=== PATIENT | male | born 1965 | race Caucasian/White ===

== ENCOUNTER 2016-05-03 22:22 | Inpatient (IN) | payer BC, OTHER ==
[~2016-05-03] VITALS: Ht 175.3 cm; Wt 95.0 kg
[2016-05-03] MEDS ORDERED: IBUP-1050 PO (23:12)
[2016-05-03] MEDS ORDERED: SODIUM CHLORIDE 0.9% 1000ML 1,000 ML IV STA (23:15)
[2016-05-03] MEDS ORDERED: SODIUM CHLORIDE 0.9% 500ML 500 ML IV STA (23:15)
--- NOTE | 2016-05-03 23:28 | EMERGENCY ROOM VISIT NOTE ---
History Report prepared by Singh: Daxa Bahena Under the Supervision of: Dr. Polly Bustillo M.D. First contact with patient: 23:08 Chief Complaint: ABDOMINAL PAIN Stated Complaint: STOMACH PAIN Nursing Triage Summary: Pt c/o RLQ pain since 1900. denies n/v/d. Tender to palpation. 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 The patient rates the current pain a an 8/10 in severity. The patient states that when the pain is very intense that it is a stabbing pain. The patient states that he has had some intermittent back pain associated with his symptoms. He denies any urinary symptoms or fevers. The patient states that he had stuffed cabbage for dinner 2 hours prior to his pain beginning. 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 A total of 10 systems reviewed and were otherwise negative. Past Medical & Surgical Medical Problems: (1) High cholesterol (2) Nephrolithiasis Family History Patient reports no known family medical history. Social History Smoking Status: Never Smoker Alcohol Use: occasionally Marital Status: Housing Status: lives with family Occupation Status: employed Current/Historical Medications Scheduled Tamsulosin HCl (Tamsulosin HCl), 0.4 MG PO HS Scheduled PRN Ondansetron Hcl (Zofran), 4 MG PO Q6H PRN for Nausea Oxycodone/Acetaminophen 5MG/325MG (Percocet 5MG/325MG), 1 TABLET PO Q6H PRN for Pain Allergies Coded Allergies: No Known Allergies (Unverified , 05/03/16) Physical Exam Vital Signs Date Time Temp Pulse Resp B/P Pulse Ox O2 Delivery O2 Flow Rate FiO2 05/04/16 01:52 93 18 138/76 94 Room Air 05/03/16 23:39 81 18 185/116 95 Room Air 05/03/16 22:33 37.0 88 18 197/114 94 Room Air Physical Exam Vital signs reviewed. General: Well-appearing male, in no significant distress. HEENT: No scleral icterus, PERRLA, neck supple. Atraumatic. Cardiovascular: Regular rate and rhythm, no extra sounds. Pulmonary: Clear to auscultation bilaterally, normal work of breathing. Abdomen: Mild right lower quadrant abdominal tenderness, no rebound, no guarding , positive bowel sounds. Mildly obese. Back: No CVA tenderness. Musculoskeletal: Atraumatic, no peripheral edema. Neurologic: Patient awake alert and oriented x 3 Skin: Warm, dry, no rash Medical Decision & Procedures ER Provider Diagnostic Interpretation: CT results as stated below per my review and radiologist interpretation: Preliminary Findings Only--See Final Report For Complete Findings;\\ CT ABDOMEN & PELVIS: Nephrolithiasis with 2 adjacent obstructing stones in the proximal right ureter measuring approximately 13 mm in length. There is mild right hydronephrosis and perinephric stranding. Minimally thickened wall. Underdistended bladder. Scattered colonic diverticula. Small fat-containing left inguinal hernia Fatty liver. Small nonspecific mesenteric and retroperitoneal lymph nodes. Normal appendix Radiologist: Eleanor Solorzano M.D Study ready at 1452 and initial results transmitted at 0012 Laboratory Results Test 05/03/16 22:47 05/03/16 23:15 Total Bilirubin 0.5 mg/dl (0.2-1) Aspartate Amino Transf (AST/SGOT) 22 U/L (15-37) Alanine Aminotransferase (ALT/SGPT) 36 U/L (12-78) Alkaline Phosphatase 80 U/L (45-117) Total Protein 8.3 gm/dl (6.4-8.2) Albumin 4.4 gm/dl (3.4-5.0) Globulin 3.9 gm/dl (2.5-4.0) Albumin/Globulin Ratio 1.1 (0.9-2) Lipase 172 U/L (73-393) Urine Color YELLOW Urine Appearance CLEAR (CLEAR) Urine pH 6.0 (4.5-7.5) Urine Specific [place] 1.015 (1.000-1.030) Urine Protein TRACE (NEG) Urine Glucose (UA) NEG (NEG) Urine Ketones NEG (NEG) Urine Occult Blood 3+ (NEG) Urine Nitrite NEG (NEG) Urine Bilirubin NEG (NEG) Urine Urobilinogen NEG (NEG) Urine Leukocyte Esterase NEG (NEG) Urine RBC >30 /hpf (0-4) Urine WBC 1-5 /hpf (0-5) Urine Epithelial Cells 0-5 /lpf (0-5) Urine Bacteria NEG (NEG) Laboratory results per my review. Medications Administered Medications (Trade) Dose Ordered Sig/Lauren Route Start Time Stop Time Status Last Admin Dose Admin Sodium Chloride 1,000 ml @ 125 mls/hr Q8H STAT IV 05/03/16 23:15 05/04/16 04:16 DC 05/03/16 23:40 125 MLS/HR Sodium Chloride (Nss 500ml) 500 ml @ 999 mls/hr Q31M STAT IV 05/03/16 23:15 05/03/16 23:45 DC 05/03/16 23:15 999 MLS/HR Hydralazine HCl (HydrALAZINE INJ) 10 mg NOW STAT IV. 05/03/16 23:44 05/03/16 23:46 DC 05/03/16 23:59 10 MG Hydromorphone HCl (Dilaudid Inj) 1 mg NOW STAT IV 05/04/16 00:38 05/04/16 00:39 DC 05/04/16 00:43 1 MG Ondansetron HCl 4 mg 4 mg NOW STAT IV 05/04/16 00:38 05/04/16 00:39 DC 05/04/16 00:43 4 MG Sodium Chloride (Nss 1000ml) 1,000 ml @ 100 mls/hr Q10H IV 05/04/16 02:00 05/05/16 12:36 DC 05/05/16 08:28 100 MLS/HR ED Course 2308: Past medical records reviewed. The patient was evaluated in room B2. A complete history and physical examination was performed. 2315: Ordered Sodium Chloride 500 ml @ 999 mls/hr IV, Sodium Chloride 1,000 ml @ 125 mls/hr IV. 2344: Ordered Hydralazine HCl 10 mg IV. 0037: I reevaluated the patient and updated him on his CT scan results. We discussed the patient being admitted for pain management . 0038: Ordered Dilaudid Inj 1 mg IV. 0100: I discussed the case with Dr. Gracia BAILEY Hospitalist. He agreed to evaluate the patent for further management and care. Medical Decision The patient is a 51 year old male who presents to the ED with complaints of RLQ abdominal pain. Differentials include but are not limited to appendicitis, diverticulitis, PUD, biliary pathology, UTI, pancreatitis, obstruction, mesenteric ischemia, aortic pathology, infections, inflammatory bowel disease, renal colic, as well as others were entertained. This pt was evaluated and appeared to be in no distress. IV access was obtained and lab work was drawn. 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 Pt was hydrated with NSS. He initially denied the need for pain medications. CT was performed on abd/pelvis and is significant for obstructing ureteral stone. UA is significant for blood. Pt was reevaluated and stated pain had worsened. He was given IV dilaudid and zofran with some relief. He did not feel he could go home. Pt was d/w the hospitalist service for further management. Consults Time Called: 004 Consulting Physician: [facility] Returned Call: 0100 I discussed the case with Dr[facility]. He agreed to evaluate the patent for further management and care. Impression Primary Impression: Right ureteral calculus Additional Impression: Obstructing kidney stones Scribe Attestation The scribe's documentation has been prepared under my direction and personally reviewed by me in its entirety. I confirm that the note above accurately reflects all work, treatment, procedures, and medical decision making performed by me. Departure Information Dispostion Being Evaluated By Hospitalist Prescriptions Ondansetron Hcl (ZOFRAN) 4 Mg Tab 4 MG PO Q6H Y for Nausea for 15 Days, #60 TAB Prov: Doris Clark PA-C 05/05/16 Tamsulosin HCl (Tamsulosin HCl) 0.4 Mg Cap 0.4 MG PO HS for 15 Days, #15 CAP Prov: Doris Clark PA-C 05/05/16 Oxycodone/Acetaminophen 5MG/325MG (PERCOCET 5MG/325MG) Tab 1 TABLET PO Q6H Y for Pain for 3 Days, #12 TAB Prov: Doris Clark PA-C 05/05/16 Patient Instructions [facility] Problem Qualifiers
[2016-05-03 23:30] LABS: MANUAL MICROSCOPIC REQUIRED? YES; URINE APPEARANCE CLEAR (CLEAR); URINE BILIRUBIN NEG (NEG); URINE COLOR YELLOW; URINE NITRITE NEG (NEG); URINE SPECIFIC GRAVITY 1.015 (1.000-1.030); UROBILINOGEN NEG (NEG)
[2016-05-03 23:36] LABS: REVIEW REQ? NO
[2016-05-03 23:38] LABS: URINE BACTERIA NEG (NEG); URINE RBC >30 /hpf (0-4); ZZUR CULT IF INDIC CLEAN CATCH NO
[2016-05-03 23:38] LABS: BASO % 0.3 %; BASO ABS # 0.04 K/uL (0-0.2); COMPLETE YES; EOS % 0.9 %; HEMATOCRIT 45.4 % (42-52); IG% 0.2 %; LYMPH % 17.3 %; LYMPH ABS # 2.02 K/uL (1.2-3.4); MEAN CELL VOLUME 84.9 fL (80-100); MEAN CORPUSCULAR HEMOGLOBIN 29.9 pg (25-34); MEAN CORPUSCULAR HGB CONC 35.2 g/dl (32-36); MEAN PLATELET VOLUME 11.4 fL (7.4-10.4); NEUT % 76.3 %; PLATELET COUNT 218 K/uL (130-400); RED BLOOD COUNT 5.35 M/uL (4.7-6.1); WHITE BLOOD COUNT 11.69 K/uL (4.8-10.8)
[2016-05-03] MEDS ORDERED: HydrALAZINE HCL 20 MG/ML VIAL IV. STA (23:44)
[2016-05-03 23:59] LABS: BUN/CREATININE RATIO 17.7 (10-20); CALCIUM 9.1 mg/dl (8.5-10.1); CREATININE 1.1 mg/dl (0.60-1.40); POTASSIUM 3.7 mmol/L (3.5-5.1)
[2016-05-04] VITALS (7 sets, daily range): BP systolic 120–170; BP diastolic 68–95; PULSE 75–91; TEMP 36.5–37.4; O2SAT 93–98; Ht 175.3 cm; Wt 95.0 kg
[2016-05-04 00:01] LABS: ALB/GLOB RATIO 1.1 (0.9-2)
[2016-05-04] MEDS ORDERED: HYDROmorphone INJ 1 MG/ML SYR IV STA (00:38)
[2016-05-04] MEDS ORDERED: ONDANSETRON INJ 2 MG/ML 2 ML VIAL IV STA (00:38)
[2016-05-04] MEDS ORDERED: ACETAMINOPHEN 325 MG TAB PO PRN (02:00)
[2016-05-04] MEDS ORDERED: POLYETHYLENE (MIRALAX) 17 GM PACK PO PRN (02:00)
[2016-05-04] MEDS ORDERED: ALUMINUM/MAGNESIUM/SIMETH (MAALOX MAX) 30 ML UDC PO PRN (02:00)
[2016-05-04] MEDS ORDERED: MAGNESIUM HYDROXIDE SUSP 30 ML UDC PO PRN (02:00)
[2016-05-04] MEDS ORDERED: ONDANSETRON INJ 2 MG/ML 2 ML VIAL IV PRN (02:00)
[2016-05-04] MEDS ORDERED: HydrALAZINE HCL 20 MG/ML VIAL IV. PRN (04:30)
--- NOTE | 2016-05-04 04:32 | History and Physical ---
History & Physical Date & Time of Service: May 04, 2016 at 04:30 Chief Complaint: Nephrolithiasis Primary Care Physician: No Doctor, Assigned History of Present Illness This is a 51 y/o M with a pmh of HTN and Dyslipidemia who presents with sudden onset 8/10 RLQ pain radiating to his groin and right back. This started around 7 pm today. He said he had pigs in a blanket for dinner after which the pain started and he thought it was just gas. But the pain persisted. It is a sharp stabbing pain that is intermittent. He has never experienced this before. Denies any urinary symptoms. Denies history of kidney stones. Denies gross hematuria Has his appendix. Has had some nausea, vomiting, fevers and chills. Past Medical/Surgical History Medical Problems: (1) High cholesterol Status: Chronic Family History Patient reports no known family medical history. Social History Smoking Status: Never Smoker Alcohol Use: socially Marital Status: Housing status: lives with family Occupational Status: employed Multi-Drug Resistant Organisms History of MDRO: No Allergies Coded Allergies: No Known Allergies (Unverified , 05/03/16) Home Medications Scheduled Tamsulosin HCl (Tamsulosin HCl), 0.4 MG PO HS Scheduled PRN Ondansetron Hcl (Zofran), 4 MG PO Q6H PRN for Nausea Oxycodone/Acetaminophen 5MG/325MG (Percocet 5MG/325MG), 1 TABLET PO Q6H PRN for Pain Review of Systems Constitutional: + chills, + fever, No fatigue, No weakness Respiratory: No cough, No dyspnea at rest, No dyspnea on exertion, No shortness of breath, No sputum, No wheezing Cardiovascular: No chest pain Abdomen: + nausea, + pain, + vomiting, No constipation, No diarrhea Genitourinary - Male: No dysuria, No hematuria, No urinary frequency, No urinary urgency Physical Exam Vital Signs Date Time Temp Pulse Resp B/P Pulse Ox O2 Delivery O2 Flow Rate FiO2 05/04/16 03:55 79 155/77 05/04/16 03:16 37.4 91 20 170/95 98 Room Air 05/04/16 01:52 93 18 138/76 94 Room Air 05/03/16 23:39 81 18 185/116 95 Room Air 05/03/16 22:33 37.0 88 18 197/114 94 Room Air General Appearance: no apparent distress Eyes: PERRL, EOMI ENT: hearing grossly normal Neck: supple, no adenopathy Respiratory/Chest: lungs clear, normal breath sounds, no respiratory distress, no accessory muscle use Cardiovascular: regular rate, rhythm, no edema, no murmur Abdomen/GI: normal bowel sounds, non tender, soft Back: no CVA tenderness Extremities/Musculoskelatal: no calf tenderness Neurologic/Psych: no motor/sensory deficits, alert, normal mood/affect, oriented x 3 Diagnostics Laboratory Results Results Past 24 Hours Test 05/03/16 22:47 05/03/16 23:15 Range/Units White Blood Count 11.69 4.8-10.8 K/uL Red Blood Count 5.35 4.7-6.1 M/uL Hemoglobin 16.0 14.0-18.0 g/dL Hematocrit 45.4 42-52 % Mean Corpuscular Volume 84.9 80-100 fL Mean Corpuscular Hemoglobin 29.9 25-34 pg Mean Corpuscular Hemoglobin Concent 35.2 32-36 g/dl Platelet Count 218 130-400 K/uL Mean Platelet Volume 11.4 7.4-10.4 fL Neutrophils (%) (Auto) 76.3 % Lymphocytes (%) (Auto) 17.3 % Monocytes (%) (Auto) 5.0 % Eosinophils (%) (Auto) 0.9 % Basophils (%) (Auto) 0.3 % Neutrophils # (Auto) 8.92 1.4-6.5 K/uL Lymphocytes # (Auto) 2.02 1.2-3.4 K/uL Monocytes # (Auto) 0.59 0.11-0.59 K/uL Eosinophils # (Auto) 0.10 0-0.5 K/uL Basophils # (Auto) 0.04 0-0.2 K/uL RDW Standard Deviation 40.4 36.4-46.3 fL RDW Coefficient of Variation 13.2 11.5-14.5 % Immature Granulocyte % (Auto) 0.2 % Immature Granulocyte # (Auto) 0.02 0.00-0.02 K/uL Sodium Level 141 136-145 mmol/L Potassium Level 3.7 3.5-5.1 mmol/L Chloride Level 104 98-107 mmol/L Carbon Dioxide Level 30 21-32 mmol/L Anion Gap 7.0 3-11 mmol/L Blood Urea Nitrogen 19 7-18 mg/dl Creatinine 1.10 0.60-1.40 mg/dl Est Creatinine Clear Calc Drug Dose 91.8 ml/min Estimated GFR () 90.2 Estimated GFR (Non- 77.9 BUN/Creatinine Ratio 17.7 10-20 Random Glucose 130 70-99 mg/dl Calcium Level 9.1 8.5-10.1 mg/dl Total Bilirubin 0.5 0.2-1 mg/dl Aspartate Amino Transf (AST/SGOT) 22 15-37 U/L Alanine Aminotransferase (ALT/SGPT) 36 12-78 U/L Alkaline Phosphatase 80 45-117 U/L Total Protein 8.3 6.4-8.2 gm/dl Albumin 4.4 3.4-5.0 gm/dl Globulin 3.9 2.5-4.0 gm/dl Albumin/Globulin Ratio 1.1 0.9-2 Lipase 172 73-393 U/L Urine Color YELLOW Urine Appearance CLEAR CLEAR Urine pH 6.0 4.5-7.5 Urine Specific [place] 1.015 1.000-1.030 Urine Protein TRACE NEG Urine Glucose (UA) NEG NEG Urine Ketones NEG NEG Urine Occult Blood 3+ NEG Urine Nitrite NEG NEG Urine Bilirubin NEG NEG Urine Urobilinogen NEG NEG Urine Leukocyte Esterase NEG NEG Urine RBC >30 0-4 /hpf Urine WBC 1-5 0-5 /hpf Urine Epithelial Cells 0-5 0-5 /lpf Urine Bacteria NEG NEG Impression Assessment and Plan Obstructing nephrolithiasis with mild hydro NPO NSS Pain control Urology consult Zofran Strain urine HTN, untreated Will need to be started on an agent either prior to discharge or f/u with PCP Hydralazine prn while here DVT proph Heparin, but held for probable procedure tomrrow. Advanced Directives Existing Living Will: No Existing Power of Boat Hop: No VTE Prophylaxis VTE Risk Assessment Done? Y/N: Yes Risk Level: Moderate Assessment and Plan Attending Addendum: I have physically seen and examined this patient, have directed their medical care, have supervised the medical residents activities, and agree with the H&P as noted above, with the following changes: The patient is awake, well-developed and adequately nourished, alert and oriented 3, normocephalic and atraumatic, lying in bed and in no acute distress. HEENT--PERRL, EOMI, mucous membranes and oropharynx normal. Neck--supple, no JVD or bruits, thyroid normal, trachea midline, no adenopathy. Heart--normal S1 and S2, no extra beats, no murmurs, rubs or gallops. Lungs--clear bilaterally with good air movement, no respiratory distress, no accessory muscle use. Abdomen--normal bowel sounds and soft, nontender and nondistended, no hernias or masses, no organomegaly. Extremities--no cyanosis, clubbing or edema. There are good distal pulses b/l. Dermatologic--normal skin turgor, normal color, warm and dry, no abnormal lymph nodes, no rash. Neurologic--cranial nerves II through XII grossly intact, motor and sensory examination normal. Rheumatologic--normal range of motion, nontender, muscles and joints. Psychiatric--normal affect. Assessment and Plan: Obstructing kidney stone with hydronephrosis--patient will be admitted to medical floor. She'll be kept nothing by mouth for possible procedure in the a.m. We'll consult urology. Start Zosyn 3.375mg IV every 6 hours, Zofran 4 mg IV every 6 hours when necessary nausea, Protonix 40 mg IV daily and morphine or Dilaudid IV as needed for pain. Follow serial CBC with differential, BMP and magnesium levels. Hypertension--hydralazine 10 mg IV every 4 hours when necessary.
[2016-05-04] MEDS ORDERED: HYDROmorphone INJ 1 MG/ML SYR IV PRN (04:45)
[2016-05-04] MEDS: SODIUM CHLORIDE 0.9% 1000ML 1,000 ML IV SCH ×3 (04:55→21:52)
[2016-05-04] MEDS ORDERED: HYDROmorphone INJ 2 MG/ML SYR/VIAL ONE (04:58)
[2016-05-04] MEDS ORDERED: HEPARIN SOD 5000 UNIT/0.5 ML CARP SQ SCH (06:00)
[2016-05-04 06:24] LABS: INR 0.9 (0.9-1.1)
--- NOTE | 2016-05-04 07:08 | DIAGNOSTIC IMAGING REPORT ---
CT SCAN OF THE ABDOMEN AND PELVIS WITHOUT CONTRAST CLINICAL HISTORY: Right flank pain COMPARISON STUDY: No previous studies for comparison. TECHNIQUE: CT scan of the abdomen and pelvis was performed from the lung bases to the proximal femurs. Images are reviewed in the axial, sagittal, and coronal planes. IV contrast was not administered for this examination. CT DOSE: 1596.64 mGy.cm FINDINGS: Lower chest: There are minimal dependent atelectatic changes. Liver: There is mild hepatic steatosis. No focal masses are visualized. Gallbladder: Unremarkable. Spleen: Normal in size and attenuation. Pancreas: Unremarkable. Adrenal glands: Unremarkable. Kidneys: There are clustered lower pole left renal calculi measuring 6 mm in aggregate. There is a 5 mm upper pole right renal cyst. There is a 2 mm lower pole right renal calculus. There is right-sided hydronephrosis. There are 2 tangential obstructing proximal right ureteral calculi measuring 5 mm and 3 mm respectively. No bladder calculi are visualized. Bowel: There are no transition zones indicate bowel obstruction. There is colonic diverticulosis. There are no acute peridiverticular inflammatory changes. The appendix appears normal. Peritoneum: There is no intraperitoneal free air or abdominal ascites. There is small fat-containing left inguinal hernia. Vasculature: The abdominal aorta is normal in course and caliber. Adenopathy: None. Pelvic viscera: The bladder, and pelvic viscera are unremarkable. Skeletal structures: No destructive osseous lesions are seen. IMPRESSION: 1. Bilateral nephrolithiasis 2. Obstructing tangential proximal right ureteral calculi measuring 5 mm and 3 mm respectively. These are located at the L3-4 level. Electronically signed by: Titus Stark M.D. 05/04/2016 7:07 AM Dictated Date/Time: 05/04/2016 7:02 AM
--- NOTE | 2016-05-04 09:19 | DIAGNOSTIC IMAGING REPORT ---
TWO VIEW CHEST CLINICAL HISTORY: Preoperative examination. FINDINGS: PA and lateral chest radiographs are compared to study dated 07/03/2009. The cardiomediastinal silhouette is unremarkable. The lungs and pleural spaces are clear. There is no pneumothorax. The bony thorax appears intact. IMPRESSION: No active disease in the chest. Electronically signed by: Ran Story M.D. 05/04/2016 9:17 AM Dictated Date/Time: 05/04/2016 9:17 AM
--- NOTE | 2016-05-04 09:24 | DIAGNOSTIC IMAGING REPORT ---
KUB CLINICAL HISTORY: Right ureteral calculus COMPARISON STUDY: CT scan dated 05/03/2016 FINDINGS: There is no pathologic bowel dilatation. There are 2 calcifications at the L3-4 level, consistent with proximal right ureteral calculi. These measure 5 mm and 4 mm respectively. There are clustered calcifications project over the lower pole the left kidney consistent with calculi. These measure 8 mm in aggregate. IMPRESSION: 1. Left-sided nephrolithiasis 2. Two proximal right ureteral calculi measuring 5 mm and 4 mm respectively. Electronically signed by: Titus Stark M.D. 05/04/2016 9:23 AM Dictated Date/Time: 05/04/2016 9:19 AM
[2016-05-04] MEDS ORDERED: TAMSULOSIN HCL 0.4 MG CAP PO ONE (12:00)
--- NOTE | 2016-05-04 12:02 | Urology Consultation ---
History General Date of Service: May 04, 2016. Chief Complaint: right ureteral stone Primary Care Physician: No Doctor, Assigned Pt seen a urologist before?: No History of Present Illness 51 yo male admitted with right flank pain that started last evening. The pain was accompanied by some nausea. Denies f/c, n/v, dysuria, or hematuria. Pain has improved since admission. CT scan showing 2 right ureteral stones measuring 5mm and 4mm. The stones are visible on KUB as well. He has no previous hx of stones. White count noted to be 11.69. Cr is 1.1. UC&S is pending. Currently afebrile. Imaging Imaging: CT, KUB Laboratory Last 24 Hours Test 05/03/16 22:47 05/03/16 23:15 05/04/16 05:50 White Blood Count 11.69 K/uL Red Blood Count 5.35 M/uL Hemoglobin 16.0 g/dL Hematocrit 45.4 % Mean Corpuscular Volume 84.9 fL Mean Corpuscular Hemoglobin 29.9 pg Mean Corpuscular Hemoglobin Concent 35.2 g/dl Platelet Count 218 K/uL Mean Platelet Volume 11.4 fL Neutrophils (%) (Auto) 76.3 % Lymphocytes (%) (Auto) 17.3 % Monocytes (%) (Auto) 5.0 % Eosinophils (%) (Auto) 0.9 % Basophils (%) (Auto) 0.3 % Neutrophils # (Auto) 8.92 K/uL Lymphocytes # (Auto) 2.02 K/uL Monocytes # (Auto) 0.59 K/uL Eosinophils # (Auto) 0.10 K/uL Basophils # (Auto) 0.04 K/uL RDW Standard Deviation 40.4 fL RDW Coefficient of Variation 13.2 % Immature Granulocyte % (Auto) 0.2 % Immature Granulocyte # (Auto) 0.02 K/uL Sodium Level 141 mmol/L Potassium Level 3.7 mmol/L Chloride Level 104 mmol/L Carbon Dioxide Level 30 mmol/L Anion Gap 7.0 mmol/L Blood Urea Nitrogen 19 mg/dl Creatinine 1.10 mg/dl Est Creatinine Clear Calc Drug Dose 91.8 ml/min Estimated GFR () 90.2 Estimated GFR (Non- 77.9 BUN/Creatinine Ratio 17.7 Random Glucose 130 mg/dl Calcium Level 9.1 mg/dl Total Bilirubin 0.5 mg/dl Aspartate Amino Transf (AST/SGOT) 22 U/L Alanine Aminotransferase (ALT/SGPT) 36 U/L Alkaline Phosphatase 80 U/L Total Protein 8.3 gm/dl Albumin 4.4 gm/dl Globulin 3.9 gm/dl Albumin/Globulin Ratio 1.1 Lipase 172 U/L Urine Color YELLOW Urine Appearance CLEAR Urine pH 6.0 Urine Specific [place] 1.015 Urine Protein TRACE Urine Glucose (UA) NEG Urine Ketones NEG Urine Occult Blood 3+ Urine Nitrite NEG Urine Bilirubin NEG Urine Urobilinogen NEG Urine Leukocyte Esterase NEG Urine RBC >30 /hpf Urine WBC 1-5 /hpf Urine Epithelial Cells 0-5 /lpf Urine Bacteria NEG Prothrombin Time 10.0 SECONDS Prothromb Time International Ratio 0.9 Problem List Medical Problems: (1) Right ureteral calculus Status: Acute Past History high cholesterol Past Surgical History: no surgical history Family History hyperlipidemia Social History Hx Tobacco Use In Past Year?: Yes Smoking: non-smoker Alcohol: socially Marital status: Housing status: lives with family Occupation status: employed History of MDRO No Allergies Coded Allergies: No Known Allergies (Unverified , 05/03/16) Medications Home Medications: Home Meds and Scripts Medications Dose Route/Sig Max Daily Dose Days Date Category Advil (Ibuprofen) 200 Mg Tab 400 Mg PO Q4 PRN 05/03/16 Reported Inpatient Medications: Current Inpatient Medications Medications (Trade) Dose Ordered Sig/Lauren Route Start Time Stop Time Status Last Admin Dose Admin Acetaminophen (Tylenol Tab) 650 mg Q4H PRN PO 05/04/16 02:00 06/03/16 01:59 Al Hydrox/Mg Hydrox/Simethicone (Maalox Max Susp) 15 ml Q4H PRN PO 05/04/16 02:00 06/03/16 01:59 Magnesium Hydroxide (Milk Of Magnesia Susp) 30 ml Q6H PRN PO 05/04/16 02:00 06/03/16 01:59 Polyethylene (Miralax Powder Packet) 17 gm DAILY PRN PO 05/04/16 02:00 06/03/16 01:59 Ondansetron HCl (Zofran Inj) 4 mg Q6H PRN IV 05/04/16 02:00 06/03/16 01:59 Heparin Sodium (Porcine) 5000 unit 5,000 unit Q12H SQ 05/04/16 06:00 06/03/16 05:59 Future Hold Sodium Chloride (Nss 1000ml) 1,000 ml @ 100 mls/hr Q10H IV 05/04/16 02:00 06/03/16 01:59 05/04/16 11:34 100 MLS/HR Hydralazine HCl (HydrALAZINE INJ) 10 mg Q4H PRN IV. 05/04/16 04:30 06/03/16 04:29 Hydromorphone HCl (Dilaudid Inj) 1 mg Q6H PRN IV 05/04/16 04:45 05/18/16 04:44 Review of Systems Review of Systems Constitutional: No chills, No fever Eyes: No double vision Neurological: No dizzy Endocrine: No excessive thirst Gastrointestinal: No abdominal pain, No nausea, No vomiting Cardiovascular: No chest pain Respiratory: No shortness of breath Skin: No rash Musculoskeletal: No back pain Male : + kidney stones, No blood in urine, No painful urination Physical Exam Vital Signs: Vital Signs Past 12 Hours Date Time Temp Pulse Resp B/P Pulse Ox O2 Delivery O2 Flow Rate FiO2 05/04/16 10:20 88 161/85 05/04/16 07:43 36.9 75 18 131/68 93 Room Air 05/04/16 07:20 Room Air 05/04/16 06:11 93 Room Air 05/04/16 03:55 79 155/77 05/04/16 03:30 Room Air 05/04/16 03:16 37.4 91 20 170/95 98 Room Air 05/04/16 01:52 93 18 138/76 94 Room Air Physical Exam: General Appearance: no apparent distress Eyes: bilateral eyes normal inspection ENT: hearing grossly normal Neck: no JVD Respiratory/Chest: no respiratory distress, no accessory muscle use Cardiovascular: no JVD Extremities: normal inspection Neurologic/Psychiatric: alert, normal mood/affect, oriented x 3 Skin: normal color Assessment & Plan Assessment & Plan A/P: 5mm and 4mm right ureteral stones Tx options discussed with the pt today have included a trial of passage with MET , cysto stent placement, and ESWL. Unfortunately he is not a candidate for ESWL tomorrow as he reports taking 800mg of ibuprofen daily; last dose yesterday morning. He would need to stop taking this medication for 1 week prior to ESWL. He defers stent placement at this time as his pain if is currently controlled, and wishes to attempt a trial of passage with MET at this time. Recommend supportive management with IVF and pain control. Will start Flomax as well. Strain all urine. Will provide a diet today. The pt may possibly be discharged home today from a perspective if pain remains controlled. Recommend d/c home on oral pain medication, Zofran, and Colace. If he remains overnight, will make him NPO after midnight and obtain a KUB and labs in the AM. Will also tentatively schedule him for ESWL next Sunday, May 12. Thanks for the consult. Will continue to follow along with primary service at this time. The pt was seen by myself and Dr. Alejo this afternoon.
--- NOTE | 2016-05-04 13:06 | Hospitalist Progress Note ---
Hospitalist Progress Note Date of Service May 04, 2016. Subjective Pt evaluation today including: conversation w/ patient, physical exam, chart review, lab review, review of studies, review of inpatient medication list Voiding: no voiding problems, no incontinence Patient states he is feeling well. 0/10 harkins. NPO pending urology consult- no intervention at this time, advance diet. Urination w/out any complaints. Patient denies any fever, chills, sweats, lightheadedness, dizziness, vision changes, CP, palpitations, edema, SOB, wheezing, cough, abdominal pain, nausea, vomiting, diarrhea, urinary symptoms, melena, numbness/tingling, weakness, muscle/joint pain, anxiety/depression, active bleeding, or new skin discoloration/changes. Medications Current Inpatient Medications Medications (Trade) Dose Ordered Sig/Lauren Route Start Time Stop Time Status Last Admin Dose Admin Acetaminophen (Tylenol Tab) 650 mg Q4H PRN PO 05/04/16 02:00 06/03/16 01:59 Al Hydrox/Mg Hydrox/Simethicone (Maalox Max Susp) 15 ml Q4H PRN PO 05/04/16 02:00 06/03/16 01:59 Magnesium Hydroxide (Milk Of Magnesia Susp) 30 ml Q6H PRN PO 05/04/16 02:00 06/03/16 01:59 Polyethylene (Miralax Powder Packet) 17 gm DAILY PRN PO 05/04/16 02:00 06/03/16 01:59 Ondansetron HCl (Zofran Inj) 4 mg Q6H PRN IV 05/04/16 02:00 06/03/16 01:59 Heparin Sodium (Porcine) 5000 unit 5,000 unit Q12H SQ 05/04/16 06:00 06/03/16 05:59 Future Hold Sodium Chloride (Nss 1000ml) 1,000 ml @ 100 mls/hr Q10H IV 05/04/16 02:00 06/03/16 01:59 05/04/16 11:34 100 MLS/HR Hydralazine HCl (HydrALAZINE INJ) 10 mg Q4H PRN IV. 05/04/16 04:30 06/03/16 04:29 Hydromorphone HCl (Dilaudid Inj) 1 mg Q6H PRN IV 05/04/16 04:45 05/18/16 04:44 Tamsulosin HCl (Flomax Cap) 0.4 mg HS PO 05/04/16 21:00 06/03/16 20:59 Objective Vital Signs Date Time Temp Pulse Resp B/P Pulse Ox O2 Delivery O2 Flow Rate FiO2 05/04/16 10:20 88 161/85 05/04/16 07:43 36.9 75 18 131/68 93 Room Air 05/04/16 07:20 Room Air 05/04/16 06:11 93 Room Air 05/04/16 03:55 79 155/77 05/04/16 03:30 Room Air 05/04/16 03:16 37.4 91 20 170/95 98 Room Air 05/04/16 01:52 93 18 138/76 94 Room Air 05/03/16 23:39 81 18 185/116 95 Room Air 05/03/16 22:33 37.0 88 18 197/114 94 Room Air Physical Exam General Appearance: no apparent distress Eyes: normal inspection, PERRL ENT: hearing grossly normal Neck: supple Respiratory/Chest: lungs clear, no respiratory distress, no accessory muscle use Cardiovascular: regular rate, rhythm Abdomen: normal bowel sounds, non tender, soft Extremities: no pedal edema, no calf tenderness Neurologic/Psychiatric: alert, normal mood/affect, oriented x 3 Skin: normal color, warm/dry, no rash Laboratory Results Last 24 Hours Test 05/03/16 22:47 05/03/16 23:15 05/04/16 05:50 White Blood Count 11.69 K/uL Red Blood Count 5.35 M/uL Hemoglobin 16.0 g/dL Hematocrit 45.4 % Mean Corpuscular Volume 84.9 fL Mean Corpuscular Hemoglobin 29.9 pg Mean Corpuscular Hemoglobin Concent 35.2 g/dl Platelet Count 218 K/uL Mean Platelet Volume 11.4 fL Neutrophils (%) (Auto) 76.3 % Lymphocytes (%) (Auto) 17.3 % Monocytes (%) (Auto) 5.0 % Eosinophils (%) (Auto) 0.9 % Basophils (%) (Auto) 0.3 % Neutrophils # (Auto) 8.92 K/uL Lymphocytes # (Auto) 2.02 K/uL Monocytes # (Auto) 0.59 K/uL Eosinophils # (Auto) 0.10 K/uL Basophils # (Auto) 0.04 K/uL RDW Standard Deviation 40.4 fL RDW Coefficient of Variation 13.2 % Immature Granulocyte % (Auto) 0.2 % Immature Granulocyte # (Auto) 0.02 K/uL Sodium Level 141 mmol/L Potassium Level 3.7 mmol/L Chloride Level 104 mmol/L Carbon Dioxide Level 30 mmol/L Anion Gap 7.0 mmol/L Blood Urea Nitrogen 19 mg/dl Creatinine 1.10 mg/dl Est Creatinine Clear Calc Drug Dose 91.8 ml/min Estimated GFR () 90.2 Estimated GFR (Non- 77.9 BUN/Creatinine Ratio 17.7 Random Glucose 130 mg/dl Calcium Level 9.1 mg/dl Total Bilirubin 0.5 mg/dl Aspartate Amino Transf (AST/SGOT) 22 U/L Alanine Aminotransferase (ALT/SGPT) 36 U/L Alkaline Phosphatase 80 U/L Total Protein 8.3 gm/dl Albumin 4.4 gm/dl Globulin 3.9 gm/dl Albumin/Globulin Ratio 1.1 Lipase 172 U/L Urine Color YELLOW Urine Appearance CLEAR Urine pH 6.0 Urine Specific [place] 1.015 Urine Protein TRACE Urine Glucose (UA) NEG Urine Ketones NEG Urine Occult Blood 3+ Urine Nitrite NEG Urine Bilirubin NEG Urine Urobilinogen NEG Urine Leukocyte Esterase NEG Urine RBC >30 /hpf Urine WBC 1-5 /hpf Urine Epithelial Cells 0-5 /lpf Urine Bacteria NEG Prothrombin Time 10.0 SECONDS Prothromb Time International Ratio 0.9 Assessment and Plan This is a 51 y/o M with a pmh of HTN and Dyslipidemia who presents with sudden onset 8/10 RLQ pain radiating to his groin and right back. This started around 7 pm today. He said he had pigs in a blanket for dinner after which the pain started and he thought it was just gas. But the pain persisted. It is a sharp stabbing pain that is intermittent. He has never experienced this before. Denies any urinary symptoms. Denies history of kidney stones. Denies gross hematuria Has his appendix. Has had some nausea, vomiting, fevers and chills. Right-sided obstructing nephrolithiasis w/ hydronephrosis: - Admit to med/surg - Abdominal/pelvic CT- Bilateral nephrolithiasis. Obstructing tangential proximal right ureteral calculi measuring 5 mm and 3 mm respectively. These are located at the L3-4 level. - IV NSS @ 100 ml/hr - IV Dilaudid PRN for pain management - U/A reviewed - Strain urine - Urology consult, appreciate recommendations -- Flomax 0.4 mg PO HS -- NPO for KUB on 05/05 -- ESWL tentatively scheduled for 05/12--> d/c Ibuprofen daily - Follow PRP Leukocytosis, likely reactant to nephrolithiasis: Follow CBC HTN, untreated- ?secondary to pain: - Hydralazine PRN GI Prophylaxis: Maalox PRN, IV Zofran PRN, Colace and/or Milk of Mag PRN DVT prophylaxis: Ambulation, CHUCK and SCDs Code Status: LEVEL I, FULL Dispo: Discharge to home once medically stable. ?tomorrow
[2016-05-04] MEDS ORDERED: TAMSULOSIN HCL 0.4 MG CAP PO SCH (21:00)
[2016-05-05 06:24] LABS: BASO % 0.5 %; BASO ABS # 0.03 K/uL (0-0.2); COMPLETE YES; EOS % 2.1 %; HEMATOCRIT 41.8 % (42-52); IG% 0.3 %; LYMPH % 36.1 %; LYMPH ABS # 2.38 K/uL (1.2-3.4); MEAN CELL VOLUME 88.4 fL (80-100); MEAN CORPUSCULAR HEMOGLOBIN 30.4 pg (25-34); MEAN CORPUSCULAR HGB CONC 34.4 g/dl (32-36); MEAN PLATELET VOLUME 11.3 fL (7.4-10.4); MONO % 7.3 %; NEUT % 53.7 %; PLATELET COUNT 187 K/uL (130-400); RED BLOOD COUNT 4.73 M/uL (4.7-6.1)
[2016-05-05 07:27] LABS: BUN/CREATININE RATIO 16.7 (10-20); CREATININE 0.75 mg/dl (0.60-1.40)
--- NOTE | 2016-05-05 07:52 | DIAGNOSTIC IMAGING REPORT ---
KUB CLINICAL HISTORY: right ureteral stone x 2 nephrocalcinosis COMPARISON STUDY: 05/04/2016 FINDINGS: Right ureteral calculi are slightly distal in position compared to the prior study. Kidneys are otherwise obscured by overlying bowel content. IMPRESSION: Slight distal migration of the patient's right ureteral calculi now adjacent to the right transverse process of L4 Electronically signed by: Luis Woodward M.D. 05/05/2016 7:51 AM Dictated Date/Time: 05/05/2016 7:44 AM
[2016-05-05 08:18] VITALS: BP 128/89; PULSE 67; TEMP 36.7; O2SAT 95
[2016-05-05] MEDS: SODIUM CHLORIDE 0.9% 1000ML 1,000 ML IV SCH (08:28)
--- NOTE | 2016-05-05 08:49 | Progress Note ---
Subjective Date of Service: May 05, 2016. (Judy Melo CRNP) Subjective Pt evaluation today including: conversation w/ patient, chart review, lab review Voiding: no voiding problems 51 year old male admitted with 2 right ureteral stones. He reports no pain overnight into today. he has been placed NPO for possible stent placement however since he has not been having any pain he would like to avoid stent placement. 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 He understands if pain returns or develops fever he will need to report back to ER for stent placement. His white count and creatinine are normal. KUB images reviewed from this am- shows some distal migration of right ureteral stones. (Judy Melo CRNP) Problem List Medical Problems: (1) Right ureteral calculus Status: Acute (Judy Melo CRNP) Review of Systems Constitutional: No chills, No fever Eyes: No worsening of vision ENT: No hearing loss Respiratory: No cough, No shortness of breath, No wheezing Cardiac: No chest pain Abdomen: No constipation, No nausea, No pain, No vomiting Musculoskeletal: No joint pain Male : No dysuria, No hematuria, No urinary frequency Neurologic: No memory loss Psychiatric: No depression symptoms Heme: No abnormal bleeding/bruising Endo: No fatigue Skin: No rash (Judy Melo CRNP) Objective Vital Signs Date Time Temp Pulse Resp B/P Pulse Ox O2 Delivery O2 Flow Rate FiO2 05/05/16 08:18 36.7 67 16 128/89 95 Room Air 05/05/16 00:00 Room Air 05/04/16 23:35 36.5 83 16 150/84 96 Room Air 05/04/16 16:14 36.9 75 16 120/74 96 Room Air 05/04/16 15:45 Room Air 05/04/16 10:20 88 161/85 (Judy Melo CRNP) Physical Exam General Appearance: WD/WN, no apparent distress ENT: hearing grossly normal Neck: no JVD Respiratory/Chest: no respiratory distress, no accessory muscle use Cardiovascular: no JVD Abdomen: non tender, soft Extremities: normal range of motion, non-tender, normal inspection, no pedal edema, no calf tenderness Neurologic/Psychiatric: alert, normal mood/affect, oriented x 3 Skin: normal color, warm/dry, no rash (Judy Melo CRNP) Laboratory Results Last 24 Hours Test 05/05/16 06:10 White Blood Count 6.60 K/uL Red Blood Count 4.73 M/uL Hemoglobin 14.4 g/dL Hematocrit 41.8 % Mean Corpuscular Volume 88.4 fL Mean Corpuscular Hemoglobin 30.4 pg Mean Corpuscular Hemoglobin Concent 34.4 g/dl Platelet Count 187 K/uL Mean Platelet Volume 11.3 fL Neutrophils (%) (Auto) 53.7 % Lymphocytes (%) (Auto) 36.1 % Monocytes (%) (Auto) 7.3 % Eosinophils (%) (Auto) 2.1 % Basophils (%) (Auto) 0.5 % Neutrophils # (Auto) 3.55 K/uL Lymphocytes # (Auto) 2.38 K/uL Monocytes # (Auto) 0.48 K/uL Eosinophils # (Auto) 0.14 K/uL Basophils # (Auto) 0.03 K/uL RDW Standard Deviation 44.4 fL RDW Coefficient of Variation 13.6 % Immature Granulocyte % (Auto) 0.3 % Immature Granulocyte # (Auto) 0.02 K/uL Sodium Level 144 mmol/L Potassium Level 4.0 mmol/L Chloride Level 110 mmol/L Carbon Dioxide Level 28 mmol/L Anion Gap 6.0 mmol/L Blood Urea Nitrogen 12 mg/dl Creatinine 0.75 mg/dl Est Creatinine Clear Calc Drug Dose 134.1 ml/min Estimated GFR () 124.0 Estimated GFR (Non- 107.0 BUN/Creatinine Ratio 16.7 Random Glucose 107 mg/dl Calcium Level 8.0 mg/dl (Judy Melo CRNP) Assessment and Plan 2 right ureteral stones Pt is pain free and would like to avoid stent. He is aware pain may return and to report to ER if severe. Otherwise we will feed pt this am and ok to d/c home today. Will plan for outpt ESWL our office will call to schedule follow up. Recommend discharge home on pain med and flomax. (Judy Melo CRNP)
[2016-05-05 09:44] VITALS: O2SAT 95
[2016-05-05] MEDS ORDERED: ONDA4TAB65 PO (09:44)
[2016-05-05] MEDS ORDERED: OXYC-57 PO (09:44)
[2016-05-05] MEDS ORDERED: FLM4 PO (09:44)
--- NOTE | 2016-05-05 09:57 | Discharge Instructions ---
Discharge Instructions Date of Service May 05, 2016. Admission Reason for Admission: Nephrolithiasis Discharge Discharge Diagnosis / Problem: Nephrolithiasis; right hydronephrosis Discharge Goals Goal(s): Decrease discomfort, Learn about illness, Diagnostic testing Activity Recommendations Activity Limitations: resume your previous activity . Instructions / Follow-Up Instructions / Follow-Up New/changed medications: 1. Percocet- 1 tablet by mouth every 6 hours as needed for pain 2. Tamsulosin 0.4 mg by mouth every night This medication is to help you pass your kidney stones 3. Zofran 4 mg by mouth every 6 hours as needed for nausea 4. STOP taking Ibuprofen You have asked about taking Tylenol instead of Ibuprofen, this is OK to do. It is important to note that Percocet contains 325 mg of Tylenol. It is NOT recommended you take more than 4g (4000mg) of Tylenol per day. Taking more than recommended Tylenol dosage can be very harmful to the liver. Continue to strain urine If your pain worsens or you start to develop a fever, return to the Emergency Department [facility] It is important your keep follow-up appointment with Urology on 05/12/16 for scheduled procedure (ESWL- extracorporeal shock wave lithotripsy- procedure that uses shock waves to break kidney stones into small pieces, so they can pass more easily) You have had several readings of hypertension (high blood pressure) during your stay at the hospital. It is possible your elevated blood pressure was due to pain. It is recommended you log your blood pressure 1-2 times daily. Take this log to your next PCP follow-up appointment. Your PCP will further evaluate the need for blood pressure medication. Please follow-up with your PCP within 5-7 days Please follow-up/keep all of your subspecialty appointments Current Hospital Diet Patient's current hospital diet: Regular Diet Discharge Diet Recommended Diet: Regular Diet Procedures Procedures Performed: 1. KUB 2. Chest x-ray 3. Abdominal/pelvic CT Pending Studies Studies pending at discharge: no Laboratory Results Last 24 Hours Test 05/05/16 06:10 White Blood Count 6.60 K/uL Red Blood Count 4.73 M/uL Hemoglobin 14.4 g/dL Hematocrit 41.8 % Mean Corpuscular Volume 88.4 fL Mean Corpuscular Hemoglobin 30.4 pg Mean Corpuscular Hemoglobin Concent 34.4 g/dl Platelet Count 187 K/uL Mean Platelet Volume 11.3 fL Neutrophils (%) (Auto) 53.7 % Lymphocytes (%) (Auto) 36.1 % Monocytes (%) (Auto) 7.3 % Eosinophils (%) (Auto) 2.1 % Basophils (%) (Auto) 0.5 % Neutrophils # (Auto) 3.55 K/uL Lymphocytes # (Auto) 2.38 K/uL Monocytes # (Auto) 0.48 K/uL Eosinophils # (Auto) 0.14 K/uL Basophils # (Auto) 0.03 K/uL RDW Standard Deviation 44.4 fL RDW Coefficient of Variation 13.6 % Immature Granulocyte % (Auto) 0.3 % Immature Granulocyte # (Auto) 0.02 K/uL Sodium Level 144 mmol/L Potassium Level 4.0 mmol/L Chloride Level 110 mmol/L Carbon Dioxide Level 28 mmol/L Anion Gap 6.0 mmol/L Blood Urea Nitrogen 12 mg/dl Creatinine 0.75 mg/dl Est Creatinine Clear Calc Drug Dose 134.1 ml/min Estimated GFR () 124.0 Estimated GFR (Non- 107.0 BUN/Creatinine Ratio 16.7 Random Glucose 107 mg/dl Calcium Level 8.0 mg/dl Medical Emergencies . Who to Call and When: Medical Emergencies: If at any time you feel your situation is an emergency, please call 911 immediately. . Non-Emergent Contact Non-Emergency issues call your: Primary Care Provider . . "Provider Documentation" section prepared by Doris Clark. VTE Core Measure Inpt VTE Proph given/why not?: Jaden Shirley, SCD's
--- NOTE | 2016-05-05 10:03 | Discharge Summary ---
Discharge Summary Date of Service May 05, 2016. Discharge Summary Admission Date: May 04, 2016 at 02:00 Discharge Date: May 05, 2016 Discharge Disposition: Home Principal Diagnosis: Nephrolithiasis Problems/Secondary Diagnoses: 1. Right-sided obstructing nephrolithiasis w/ hydronephrosis 2. Bilateral nephrolithiasis 2. Leukocytosis 3. HTN, untreated Procedures: CT SCAN OF THE ABDOMEN AND PELVIS WITHOUT CONTRAST CLINICAL HISTORY: Right flank pain COMPARISON STUDY: No previous studies for comparison. TECHNIQUE: CT scan of the abdomen and pelvis was performed from the lung bases to the proximal femurs. Images are reviewed in the axial, sagittal, and coronal planes. IV contrast was not administered for this examination. CT DOSE: 1596.64 mGy.cm FINDINGS: Lower chest: There are minimal dependent atelectatic changes. Liver: There is mild hepatic steatosis. No focal masses are visualized. Gallbladder: Unremarkable. Spleen: Normal in size and attenuation. Pancreas: Unremarkable. Adrenal glands: Unremarkable. Kidneys: There are clustered lower pole left renal calculi measuring 6 mm in aggregate. There is a 5 mm upper pole right renal cyst. There is a 2 mm lower pole right renal calculus. There is right-sided hydronephrosis. There are 2 tangential obstructing proximal right ureteral calculi measuring 5 mm and 3 mm respectively. No bladder calculi are visualized. Bowel: There are no transition zones indicate bowel obstruction. There is colonic diverticulosis. There are no acute peridiverticular inflammatory changes. The appendix appears normal. Peritoneum: There is no intraperitoneal free air or abdominal ascites. There is small fat-containing left inguinal hernia. Vasculature: The abdominal aorta is normal in course and caliber. Adenopathy: None. Pelvic viscera: The bladder, and pelvic viscera are unremarkable. Skeletal structures: No destructive osseous lesions are seen. IMPRESSION: 1. Bilateral nephrolithiasis 2. Obstructing tangential proximal right ureteral calculi measuring 5 mm and 3 mm respectively. These are located at the L3-4 level. Electronically signed by: Titus Stark M.D. 05/04/2016 7:07 AM Dictated Date/Time: 05/04/2016 7:02 AM The status of this report is Signed. Draft = Not yet reviewed or approved by Radiologist. Signed = Reviewed and approved by Radiologist. KUB CLINICAL HISTORY: Right ureteral calculus COMPARISON STUDY: CT scan dated 05/03/2016 FINDINGS: There is no pathologic bowel dilatation. There are 2 calcifications at the L3-4 level, consistent with proximal right ureteral calculi. These measure 5 mm and 4 mm respectively. There are clustered calcifications project over the lower pole the left kidney consistent with calculi. These measure 8 mm in aggregate. IMPRESSION: 1. Left-sided nephrolithiasis 2. Two proximal right ureteral calculi measuring 5 mm and 4 mm respectively. Electronically signed by: Titus Stark M.D. 05/04/2016 9:23 AM Dictated Date/Time: 05/04/2016 9:19 AM The status of this report is Signed. Draft = Not yet reviewed or approved by Radiologist. Signed = Reviewed and approved by Radiologist. TWO VIEW CHEST CLINICAL HISTORY: Preoperative examination. FINDINGS: PA and lateral chest radiographs are compared to study dated 07/03/2009. The cardiomediastinal silhouette is unremarkable. The lungs and pleural spaces are clear. There is no pneumothorax. The bony thorax appears intact. IMPRESSION: No active disease in the chest. Electronically signed by: Ran Story M.D. 05/04/2016 9:17 AM Dictated Date/Time: 05/04/2016 9:17 AM The status of this report is Signed. Draft = Not yet reviewed or approved by Radiologist. Signed = Reviewed and approved by Radiologist. KUB CLINICAL HISTORY: right ureteral stone x 2 nephrocalcinosis COMPARISON STUDY: 05/04/2016 FINDINGS: Right ureteral calculi are slightly distal in position compared to the prior study. Kidneys are otherwise obscured by overlying bowel content. IMPRESSION: Slight distal migration of the patient's right ureteral calculi now adjacent to the right transverse process of L4 Electronically signed by: Luis Woodward M.D. 05/05/2016 7:51 AM Dictated Date/Time: 05/05/2016 7:44 AM The status of this report is Signed. Draft = Not yet reviewed or approved by Radiologist. Signed = Reviewed and approved by Radiologist. Consultations: Urology- VAIBHAV Orellana, VAIBHAV Wilson, and Dr. Alejo Medication Reconciliation New Medications: Ondansetron Hcl (Zofran) 4 Mg Tab 4 MG PO Q6H PRN for Nausea for 15 Days, #60 TAB Oxycodone/Acetaminophen 5MG/325MG (Percocet 5MG/325MG) Tab 1 TABLET PO Q6H PRN for Pain for 3 Days, #12 TAB Tamsulosin HCl (Tamsulosin HCl) 0.4 Mg Cap 0.4 MG PO HS for 15 Days, #15 CAP Discontinued Medications: Ibuprofen (Advil) 200 Mg Tab 400 MG PO Q4 PRN for Pain Discharge Exam Review of Systems: Constitutional: No chills, No fatigue, No fever, No sweats, No weakness ENT: No hearing loss Respiratory: No cough, No hemoptysis, No shortness of breath Cardiovascular: No edema, No palpitations Abdomen: No constipation, No diarrhea, No nausea, No pain, No vomiting Musculoskeletal: No calf pain, No joint pain, No muscle pain, No swelling Genitourinary - Male: No dysuria, No hematuria Neurologic: No numbness/tingling, No weakness Psychiatric: No anxiety, No depression symptoms Endocrine: No fatigue Hematologic / Lymphatic: No abnormal bleeding/bruising Integumentary: No itch, No new/changing skin lesions, No rash Physical Exam: General Appearance: no apparent distress Eyes: normal inspection, PERRL ENT: hearing grossly normal Neck: supple Respiratory/Chest: lungs clear, no respiratory distress, no accessory muscle use Cardiovascular: regular rate, rhythm Abdomen / GI: normal bowel sounds, non tender, soft Extremities: no calf tenderness, no pedal edema Neurologic/Psychiatric: alert, normal mood/affect, oriented x 3 Skin: normal color, warm/dry, no rash Hospital Course This is a 51 y/o M with a pmh of HTN and Dyslipidemia who presents with sudden onset 8/10 RLQ pain radiating to his groin and right back. This started around 7 pm today. He said he had pigs in a blanket for dinner after which the pain started and he thought it was just gas. But the pain persisted. It is a sharp stabbing pain that is intermittent. He has never experienced this before. Denies any urinary symptoms. Denies history of kidney stones. Denies gross hematuria Has his appendix. Has had some nausea, vomiting, fevers and chills. Right-sided obstructing nephrolithiasis w/ hydronephrosis: - Admit to med/surg - Abdominal/pelvic CT- Bilateral nephrolithiasis. Obstructing tangential proximal right ureteral calculi measuring 5 mm and 3 mm respectively. These are located at the L3-4 level. - IV NSS @ 100 ml/hr - IV Dilaudid PRN for pain management - U/A reviewed - Strain urine - Urology consult, appreciate recommendations -- Flomax 0.4 mg PO HS -- NPO for KUB on 05/05 -- ESWL tentatively scheduled for 05/12--> d/c Ibuprofen daily - Follow PRP Leukocytosis, likely reactant to nephrolithiasis- resolved: Follow CBC HTN, untreated- ?secondary to pain: - Hydralazine PRN At discharge, instructed patient to log BPs 1-2 times daily and follow-up with PCP to evaluate the need of BP medication GI Prophylaxis: Maalox PRN, IV Zofran PRN, Colace and/or Milk of Mag PRN DVT prophylaxis: Ambulation, CHUCK and SCDs Code Status: LEVEL I, FULL Dispo: Discharge to home Total Time Spent: Greater than 30 minutes This includes examination of the patient, discharge planning, medication reconciliation, and communication with other providers. Discharge Instructions Please refer to the electronic Patient Visit Report (Discharge Instructions) for additional information. Follow-Up Please follow-up with your PCP within 5-7 days Please keep scheduled follow-up appointment with Urology on 05/12 Please follow-up/keep all of your subspecialty appointments
[2016-05-05 12:18] VITALS: BP 128/89; PULSE 67; TEMP 36.7; O2SAT 95
[2016-05-08] MEDS ORDERED: TAMS0.4C38 PO (10:33)
[2016-05-08] MEDS ORDERED: OXYC-57 PO (10:33)
[2016-05-08] MEDS ORDERED: ACET-1256 PO (10:33)
[2016-05-08] MEDS ORDERED: ONDA4TAB46 PO (10:33)
[2016-06-23] MEDS ORDERED: HYDR-3419 PO (09:38)
[2016-06-23] MEDS ORDERED: OXYC-57 PO (10:27)
== END 2016-05-05 12:36 | disposition home or self-care (01) | DRG 694 ==
LOC: ENRESERVTM → ENRESERVDT → C.EDB 22:23 → C.MSN 05-04 02:00
PROVIDERS: ADMIT Student in an Organized Health Care Education/Training Program; ATTEND Hospitalist
DX: N13.2 Hydronephrosis with renal and ureteral calculous obstruction (principal); I10 Essential (primary) hypertension; E78.00 Pure hypercholesterolemia, unspecified; D72.829 Elevated white blood cell count, unspecified; Z79.1 Long term (current) use of non-steroidal anti-inflammatories (NSAID); Z79.899 Other long term (current) drug therapy; Z79.891 Long term (current) use of opiate analgesic

== ENCOUNTER → 2016-05-12 | Day surgery (SDC) | payer OTHER ==
[2016-05-08 10:33] VITALS: Ht 175.3 cm; Wt 95.0 kg
[~2016-05-12] VITALS: Ht 175.3 cm; Wt 95.0 kg
[~2016-05-12] MED LIST: ACET-1256 PO; ATROPINE SULFATE 0.1 MG/ML 5ML SYR IV PRN; CIPROFLOXACIN 400MG / D5W IV SCH; DEXAMETHASONE SOD INJ 4 MG/ML VIAL ONE; EpHEDrine SULFATE INJ 50 MG/ML AMP IV PRN; FENTANYL CITRATE INJ 50 MCG/1 ML 2 ML VIAL IV PRN; FENTANYL CITRATE INJ 50 MCG/1 ML 2 ML VIAL ONE; HYDR-3419 PO; LACTATED RINGER'S 1000ML 1,000 ML IV SCH; LIDOCAINE HCL 2% 2 ML VIAL (20MG/ML) ONE; MIDAZOLAM HCL 1 MG/ML 2ML VIAL ONE; ONDA4TAB46 PO; ONDANSETRON INJ 2 MG/ML 2 ML VIAL IV PRN; ONDANSETRON INJ 2 MG/ML 2 ML VIAL ONE; OXYC-57 PO; OXYCODONE/ACETAMINOPHEN 5-325 TAB ONE; OXYCODONE/ACETAMINOPHEN 5-325 TAB PO PRN; PROPOFOL IV EMULSION 10 MG/ML 20 ML VIAL IV ONE; SODIUM CHLORIDE 0.9% 1000ML 1,000 ML IV SCH; TAMS0.4C38 PO
--- NOTE | 2016-05-12 08:03 | DIAGNOSTIC IMAGING REPORT ---
KUB CLINICAL HISTORY: N20.0 [id number] nephrocalcinosis COMPARISON STUDY: 05/05/2016 FINDINGS: Unchanging mid right ureteral calculus. It continues to be slightly superior to the right lateral transverse process of L4. 7 mm calcification lower pole left kidney. Nonobstructive bowel pattern. IMPRESSION: Unchanging mid right ureteral calculus. Lower pole left renal calculus. Electronically signed by: Luis Woodward M.D. 05/12/2016 8:01 AM Dictated Date/Time: 05/12/2016 7:58 AM
--- NOTE | 2016-05-12 10:35 | History & Physical Bridge Note ---
H&P Re-Evaluation Bridge Note: I have examined the patient, reviewed the History & Physical and in the interval since the performance of the History & Physical I have noted the following changes of clinical significance: No changes noted
--- NOTE | 2016-05-12 11:22 | [facility] Post Operative Brief Note ---
Immediate Operative Summary Operative Date May 12, 2016. Pre-Operative Diagnosis Right Ureteral Stone Post-Operative Diagnosis Same Procedure(s) Performed Right Ureteral Extracorporeal Shock Wave Lithotripsy Surgeon Dr. Reyes Hairspring I Inspector Surgeon(s) None Estimated Blood Loss 0 Findings R ureteral stone Specimens None Drains none Anesthesia gen Complication(s) None Disposition Recovery Room / PACU (stable)
--- NOTE | 2016-05-12 11:23 | Discharge Instructions-SurgCtr ---
Discharge Instructions Date of Service May 12, 2016. Visit Reason for Visit: Stones Discharge Discharge Diagnosis / Problem: stones Discharge Goals Goal(s): Decrease discomfort, Improve function, Increase independence, Improve disease control Activity Recommendations Activity Limitations: resume your previous activity Lifting Limitations: none Exercise/Sports Limitations: none May Resume Sexual Activity: when tolerated Shower/Bathe: no limitations Driving or Machine Use: no limitations (as long as you are off of pain meds) Anesthesia . Post Anesthesia Instructions: If you have had General Anesthesia or IV Sedation: * Do not drive today. * Resume driving when surgeon permits. * Do not make important decisions or sign legal documents today. * Call surgeon for: 1. Temperature elevations greater than 101 degrees F. 2. Uncontrollable pain. 3. Excessive bleeding. 4. Persistent nausea and vomiting. 5. Medication intolerance (nausea, vomiting or rash). * For nausea and vomiting use only clear liquids such as: tea, soda, bouillon until nausea subsides, then gradually increase diet as tolerated. * If you have any concerns or questions, call your surgeon's office. If physician is unavailable and it is an emergency, call 911 or go to the nearest emergency room. . Diet Recommendations Home Diet: no limitations Procedures Procedures Performed: Right Ureteral Extracorporeal Shock Wave Lithotripsy Pending Studies Studies pending at discharge: no Medical Emergencies . Who to Call and When: Medical Emergencies: If at any time you feel your situation is an emergency, please call 911 immediately. . Non-Emergent Contact Non-Emergency issues call your: Urologist Call Non-Emergent contact if: you have a fever, temperature is above 101.5, your pain is not controlled, your pain is worsening, your pain is unusual for you . . "Provider Documentation" section prepared by Shashank Ulloa.
[2016-05-12 12:04] VITALS: TEMP 36.3
[2016-05-12 12:36] VITALS: BP 148/94; PULSE 73; O2SAT 96
--- NOTE | 2016-05-12 13:01 | Anesthesia Progress Nt - [facility] ---
Anesthesia Post Op Note Date & Time May 12, 2016 at 13:00 Vital Signs Pain Intensity: 2 Vital Signs Past 12 Hours Date Time Temp Pulse Resp B/P Pulse Ox O2 Delivery O2 Flow Rate FiO2 05/12/16 12:36 73 18 148/94 96 Room Air 05/12/16 12:04 36.3 75 18 154/94 96 Room Air 05/12/16 11:57 83 14 05/12/16 11:57 84 14 95 05/12/16 11:55 141/103 05/12/16 11:52 78 12 95 05/12/16 11:52 82 12 05/12/16 11:50 142/92 05/12/16 11:47 70 14 97 05/12/16 11:47 71 14 05/12/16 11:45 150/97 05/12/16 11:42 69 12 98 05/12/16 11:42 70 12 05/12/16 11:40 143/101 05/12/16 11:37 67 12 05/12/16 11:37 67 12 98 05/12/16 11:35 150/91 05/12/16 11:33 36.6 69 12 146/102 98 Mask 6 05/12/16 11:32 70 146/102 98 05/12/16 11:32 70 05/12/16 08:19 36.9 86 16 142/91 96 Room Air Notes Mental Status: alert / awake / arousable, participated in evaluation Pt Amnestic to Procedure: Yes Nausea / Vomiting: adequately controlled Pain: adequately controlled Airway Patency, RR, SpO2: stable & adequate BP & HR: stable & adequate Hydration State: stable & adequate Anesthetic Complications: no major complications apparent
--- NOTE | 2016-05-12 13:30 | OPERATIVE REPORT ---
DATE OF OPERATION: 05/12/2016 PREOPERATIVE DIAGNOSIS: Right ureteral calculus. POSTOPERATIVE DIAGNOSIS: Right ureteral calculus. PROCEDURE: Right extracorporeal shockwave lithotripsy. ANESTHESIA: General. ESTIMATED BLOOD LOSS: 0. URINE OUTPUT: Not recorded. SPECIMENS: There were no specimens. COMPLICATIONS: There were no complications. DESCRIPTION OF THE PROCEDURE: Duncan was identified in the preoperative holding area. Appropriate informed consents were reviewed and completed and the patient was transported to the operating suite. He received appropriate preoperative antibiotics in the form of ciprofloxacin as well as general anesthesia. Stone was localized under fluoroscopy. A total of 3000 shocks delivered to the stone. Further details can be found on the [facility] Stone Management Information Sheet. However, in summary, he tolerated the procedure well, was extubated and taken to the PACU in stable condition. I attest to the content of the Intraoperative Record and any orders documented therein. Any exceptio ns are noted below.
== END | disposition home or self-care (01) ==
LOC: X.SURG 08:03
PROVIDERS: ATTEND Urology
DX: N20.0 Calculus of kidney (principal); E78.00 Pure hypercholesterolemia, unspecified; I10 Essential (primary) hypertension; Z83.3 Family history of diabetes mellitus; Z82.49 Family history of ischemic heart disease and other diseases of the circulatory system

== ENCOUNTER → 2016-05-23 | Outpatient (CLI) | payer OTHER ==
[~2016-05-23] MED LIST changes: -ATROPINE SULFATE 0.1 MG/ML 5ML SYR IV PRN; -CIPROFLOXACIN 400MG / D5W IV SCH; -DEXAMETHASONE SOD INJ 4 MG/ML VIAL ONE; -EpHEDrine SULFATE INJ 50 MG/ML AMP IV PRN; -FENTANYL CITRATE INJ 50 MCG/1 ML 2 ML VIAL IV PRN; -FENTANYL CITRATE INJ 50 MCG/1 ML 2 ML VIAL ONE; -LACTATED RINGER'S 1000ML 1,000 ML IV SCH; -LIDOCAINE HCL 2% 2 ML VIAL (20MG/ML) ONE; -MIDAZOLAM HCL 1 MG/ML 2ML VIAL ONE; -ONDANSETRON INJ 2 MG/ML 2 ML VIAL IV PRN; -ONDANSETRON INJ 2 MG/ML 2 ML VIAL ONE; -OXYCODONE/ACETAMINOPHEN 5-325 TAB ONE; -OXYCODONE/ACETAMINOPHEN 5-325 TAB PO PRN; -PROPOFOL IV EMULSION 10 MG/ML 20 ML VIAL IV ONE; -SODIUM CHLORIDE 0.9% 1000ML 1,000 ML IV SCH
--- NOTE | 2016-05-23 18:59 | DIAGNOSTIC IMAGING REPORT ---
KUB CLINICAL HISTORY: Nephrolithiasis. FINDINGS: 2 AP supine abdominal radiographs are compared to study dated 05/12/2016 and correlated with abdominal CT dated 05/03/2016. There is a nonobstructed abdominal bowel gas pattern. A 7 mm nonobstructing calculus is again seen projecting over the lower pole of the left kidney. No calcifications are identified projecting over the right kidney. A 4 mm calculus is again seen projecting along the course of the right ureter at the level of the L4 transverse process. The bony structures appear intact. IMPRESSION: 1. A 4 mm right ureteral calculus is again seen at the level of the L4 transverse process. 2. Unchanged appearance of a 7 mm nonobstructing calculus in the lower pole of left kidney Electronically signed by: Ran Story M.D. 05/23/2016 6:57 PM Dictated Date/Time: 05/23/2016 6:54 PM
== END | disposition home or self-care (01) ==
LOC: C.RAD 17:27
PROVIDERS: ATTEND Urology
DX: N20.0 Calculus of kidney (principal); N20.1 Calculus of ureter

== ENCOUNTER → 2016-06-01 | Outpatient (CLI) | payer OTHER ==
--- NOTE | 2016-06-01 14:07 | DIAGNOSTIC IMAGING REPORT ---
CT SCAN OF THE ABDOMEN AND PELVIS WITHOUT IV CONTRAST CLINICAL HISTORY: Nephrolithiasis. Ureteral stone. COMPARISON STUDY: Abdominal CT dated 05/03/2016. TECHNIQUE: CT scan of the abdomen and pelvis is performed from the lung bases to the proximal femora. Images are reviewed in the axial, sagittal, and coronal planes. IV contrast was not administered for this examination. Automated dose control exposure was utilized. CT DOSE: 1674.59 mGy.cm FINDINGS: Lung bases: The heart is normal in size and without pericardial effusion. There are coronary artery calcifications. The lung bases are clear. Liver: The unenhanced liver is top normal in size measuring 18 cm in length. The liver demonstrates diffusely diminished attenuation consistent with hepatic steatosis. Fatty sparing is noted adjacent to the gallbladder fossa. There is no intrahepatic biliary ductal dilatation. Gallbladder: Unremarkable. Spleen: Normal in size and attenuation. Pancreas: Unremarkable. Adrenal glands: Unremarkable. Kidneys: The unenhanced kidneys are normal in size and without hydronephrosis. There is a 7 mm nonobstructing calculus in the lower pole of the left kidney. A punctate nonobstructing calculus is seen in the lower pole of the right kidney. No ureteral stone is seen. There is no evidence of contour deforming renal mass lesion. Abdominal vasculature: The abdominal aorta is normal in course and caliber noting mild atherosclerotic calcification. Bowel: The small bowel and colon are normal in course and caliber. There is moderate sigmoid diverticulosis without CT evidence of acute diverticulitis. The appendix is well-visualized and normal. Peritoneum: There is no intraperitoneal free air or abdominal ascites. Lymphadenopathy: None. Pelvic viscera: The bladder, prostate, and seminal vesicles are normal as visualized. Skeletal structures: There is mild lumbosacral spondylosis. No lytic or blastic lesions are seen. IMPRESSION: 1. Bilateral nonobstructing renal calculi. 2. No ureteral stone is seen. 3. Hepatic steatosis. 4. Moderate sigmoid diverticulosis without CT evidence of acute diverticulitis. 5. Additional findings as above. Electronically signed by: Ran Story M.D. 06/01/2016 2:06 PM Dictated Date/Time: 06/01/2016 1:59 PM
== END | disposition home or self-care (01) ==
LOC: C.CTS 13:05
PROVIDERS: ATTEND Nurse Practitioner Adult Health
DX: N20.0 Calculus of kidney (principal); K76.0 Fatty (change of) liver, not elsewhere classified; K57.30 Diverticulosis of large intestine without perforation or abscess without bleeding

== ENCOUNTER → 2016-06-22 | Outpatient (CLI) | payer OTHER ==
--- NOTE | 2016-06-22 16:38 | DIAGNOSTIC IMAGING REPORT ---
KUB CLINICAL HISTORY: Nephrolithiasis. FINDINGS: 2 AP supine abdominal radiographs are compared to study dated 05/23/2016 and correlated with abdominal CT dated 06/01/2016. There is a nonobstructed abdominal bowel gas pattern. An 8 mm calculus projects over the lower pole of the left kidney. This is unchanged from previous. No calcifications are seen projecting over the right kidney or along the course of the ureters. The bony structures appear intact. IMPRESSION: An 8 mm left lower pole renal calculus is unchanged from previous. Electronically signed by: Ran Story M.D. 06/22/2016 4:37 PM Dictated Date/Time: 06/22/2016 4:35 PM
== END | disposition home or self-care (01) ==
LOC: C.RAD 16:03
PROVIDERS: ATTEND Urology
DX: N20.0 Calculus of kidney (principal)

== ENCOUNTER → 2016-06-23 | Day surgery (SDC) | payer OTHER ==
[2016-06-13 08:42] VITALS: Ht 175.3 cm; Wt 95.0 kg
[~2016-06-23] VITALS: Ht 175.3 cm; Wt 95.0 kg
[~2016-06-23] MED LIST changes: +ATROPINE SULFATE 0.1 MG/ML 5ML SYR IV PRN; +CIPROFLOXACIN 400MG / D5W IV SCH; +DEXAMETHASONE SOD INJ 4 MG/ML VIAL IV PRN; +DEXAMETHASONE SOD INJ 4 MG/ML VIAL ONE; +EpHEDrine SULFATE INJ 50 MG/ML AMP IV PRN; +FENTANYL CITRATE INJ 50 MCG/1 ML 2 ML VIAL IV PRN; +FENTANYL CITRATE INJ 50 MCG/1 ML 2 ML VIAL ONE; +KETOROLAC TROMETHAMINE 30 MG/ML VIAL IV. PRN; +LABETALOL HCL IV 5 MG/ML 20ML IV PRN; +LACTATED RINGER'S 1000ML 1,000 ML IV SCH; +LIDOCAINE HCL 2% 2 ML VIAL (20MG/ML) ONE; +METOCLOPRAMIDE HCL INJ 5 MG/ML 2 ML VIAL IV PRN; +MIDAZOLAM HCL 1 MG/ML 2ML VIAL ONE; +MoRPHine SULFATE 10 MG/ML CARP/VIAL IV PRN; +ONDANSETRON INJ 2 MG/ML 2 ML VIAL IV PRN; +ONDANSETRON INJ 2 MG/ML 2 ML VIAL ONE; +PHENYLEPHRINE 100MCG/ML 5ML SYR IV PRN; +PROPOFOL IV EMULSION 10 MG/ML 20 ML VIAL IV ONE
--- NOTE | 2016-06-23 09:37 | [facility] Post Operative Brief Note ---
Immediate Operative Summary Operative Date June 23, 2016. Pre-Operative Diagnosis Left Renal Stone Post-Operative Diagnosis Same Procedure(s) Performed Left Extracorporeal Shock Wave Lithotripsy Surgeon Dr. Alejo Budget Director Surgeon(s) None Estimated Blood Loss 0 mL Findings stone appeared to fragment Specimens None
--- NOTE | 2016-06-23 09:43 | Discharge Instructions-SurgCtr ---
Discharge Instructions Date of Service June 23, 2016. Visit Reason for Visit: Stones Discharge Discharge Diagnosis / Problem: left eswl Discharge Goals Goal(s): Decrease discomfort Activity Recommendations Activity Limitations: resume your previous activity Anesthesia . Post Anesthesia Instructions: If you have had General Anesthesia or IV Sedation: * Do not drive today. * Resume driving when surgeon permits. * Do not make important decisions or sign legal documents today. * Call surgeon for: 1. Temperature elevations greater than 101 degrees F. 2. Uncontrollable pain. 3. Excessive bleeding. 4. Persistent nausea and vomiting. 5. Medication intolerance (nausea, vomiting or rash). * For nausea and vomiting use only clear liquids such as: tea, soda, bouillon until nausea subsides, then gradually increase diet as tolerated. * If you have any concerns or questions, call your surgeon's office. If physician is unavailable and it is an emergency, call 911 or go to the nearest emergency room. . Diet Recommendations Home Diet: resume previous diet Procedures Procedures Performed: Left Extracorporeal Shock Wave Lithotripsy Pending Studies Studies pending at discharge: no Medical Emergencies . Who to Call and When: Medical Emergencies: If at any time you feel your situation is an emergency, please call 911 immediately. . Non-Emergent Contact Non-Emergency issues call your: Urologist . . "Provider Documentation" section prepared by Reagan Alejo. .
[2016-06-23 10:19] VITALS: TEMP 36.4
[2016-06-23 10:48] VITALS: BP 133/89; PULSE 68; O2SAT 95
--- NOTE | 2016-06-23 10:51 | Anesthesia Progress Nt - [facility] ---
Anesthesia Post Op Note Date & Time June 23, 2016 at 10:50 Vital Signs Pain Intensity: 1 Vital Signs Past 12 Hours Date Time Temp Pulse Resp B/P Pulse Ox O2 Delivery O2 Flow Rate FiO2 06/23/16 10:48 68 16 133/89 95 Room Air 06/23/16 10:19 36.4 71 16 145/92 95 Room Air 06/23/16 10:14 143/104 06/23/16 10:11 36.4 69 18 138/94 95 Room Air 06/23/16 10:11 134/100 06/23/16 10:10 69 25 06/23/16 10:10 68 25 94 06/23/16 10:06 131/99 06/23/16 10:05 60 13 99 06/23/16 10:05 62 13 06/23/16 10:01 131/90 06/23/16 10:00 66 13 06/23/16 10:00 65 13 99 06/23/16 09:56 132/97 06/23/16 09:55 65 13 06/23/16 09:55 66 13 99 06/23/16 09:51 144/105 06/23/16 09:50 70 15 06/23/16 09:50 70 15 98 06/23/16 09:46 138/107 06/23/16 09:45 60 14 06/23/16 09:45 58 14 99 06/23/16 09:44 36.6 65 16 154/111 95 Mask 6 06/23/16 09:42 154/111 06/23/16 07:18 36.6 75 16 152/95 97 Room Air Notes Mental Status: alert / awake / arousable, participated in evaluation Pt Amnestic to Procedure: Yes Nausea / Vomiting: adequately controlled Pain: adequately controlled Airway Patency, RR, SpO2: stable & adequate BP & HR: stable & adequate Hydration State: stable & adequate Anesthetic Complications: no major complications apparent
--- NOTE | 2016-06-23 11:52 | OPERATIVE REPORT ---
DATE OF OPERATION: 06/23/2016 PREOPERATIVE DIAGNOSIS: Left renal stone. POSTOPERATIVE DIAGNOSIS: Same. PROCEDURE PERFORMED: Left renal ESWL. SURGEON: Dr. Alejo. ANESTHESIA: General. INDICATIONS: The patient is a 51-year-old male status post passing a right stone recently who wished to have his left stone treated with lithotripsy. The patient had a lower pole 7 x 4 mm left renal stone. DESCRIPTION OF THE PROCEDURE: The patient was taken to operating room after general anesthesia was administered in the supine position. He had been given preoperative antibiotics and had Venodyne stockings placed. The stone was localized in 2 views. He was given 2,500 shocks, the majority at level 5. The stone did appear to become winding operator during the course of the procedure. The patient was transferred to the recovery room in stable condition. I attest to the content of the Intraoperative Record and any orders documented therein. Any exceptio ns are noted below.
== END | disposition home or self-care (01) ==
LOC: X.SURG 06:54
PROVIDERS: ATTEND Urology
DX: N20.2 Calculus of kidney with calculus of ureter (principal); E78.00 Pure hypercholesterolemia, unspecified; I10 Essential (primary) hypertension; Z83.3 Family history of diabetes mellitus; Z82.49 Family history of ischemic heart disease and other diseases of the circulatory system

== ENCOUNTER → 2016-07-05 | Outpatient (CLI) | payer OTHER ==
[~2016-07-05] MED LIST changes: -ATROPINE SULFATE 0.1 MG/ML 5ML SYR IV PRN; -CIPROFLOXACIN 400MG / D5W IV SCH; -DEXAMETHASONE SOD INJ 4 MG/ML VIAL IV PRN; -DEXAMETHASONE SOD INJ 4 MG/ML VIAL ONE; -EpHEDrine SULFATE INJ 50 MG/ML AMP IV PRN; -FENTANYL CITRATE INJ 50 MCG/1 ML 2 ML VIAL IV PRN; -FENTANYL CITRATE INJ 50 MCG/1 ML 2 ML VIAL ONE; -KETOROLAC TROMETHAMINE 30 MG/ML VIAL IV. PRN; -LABETALOL HCL IV 5 MG/ML 20ML IV PRN; -LACTATED RINGER'S 1000ML 1,000 ML IV SCH; -LIDOCAINE HCL 2% 2 ML VIAL (20MG/ML) ONE; -METOCLOPRAMIDE HCL INJ 5 MG/ML 2 ML VIAL IV PRN; -MIDAZOLAM HCL 1 MG/ML 2ML VIAL ONE; -MoRPHine SULFATE 10 MG/ML CARP/VIAL IV PRN; -ONDA4TAB46 PO; -ONDANSETRON INJ 2 MG/ML 2 ML VIAL IV PRN; -ONDANSETRON INJ 2 MG/ML 2 ML VIAL ONE; -PHENYLEPHRINE 100MCG/ML 5ML SYR IV PRN; -PROPOFOL IV EMULSION 10 MG/ML 20 ML VIAL IV ONE; -TAMS0.4C38 PO
--- NOTE | 2016-07-05 17:22 | DIAGNOSTIC IMAGING REPORT ---
KUB CLINICAL HISTORY: N20.0 LITHOTRIPSY COMPARISON STUDY: 06/22/2016 FINDINGS: There is no pathologic bowel dilatation. There are no calcifications along the course of the left ureter. There is a 5 mm lower pole left renal calculus. There is decreasing stone burden when compared the preceding study. IMPRESSION: Decreasing left renal stone burden when compared with the prior study. 5 mm left renal calculus. Electronically signed by: Titus Stark M.D. 07/05/2016 5:20 PM Dictated Date/Time: 07/05/2016 5:19 PM
== END | disposition home or self-care (01) ==
LOC: C.RAD 17:04
PROVIDERS: ATTEND Urology
DX: N20.0 Calculus of kidney (principal)